=== PATIENT | female | born 1985 | race Caucasian/White ===

== ENCOUNTER 2024-04-15 17:03 | Emergency (ER) | payer MEDICAID ==
[~2024-04-15] VITALS: Ht 167.6 cm; Wt 73.0 kg
[2024-04-15 17:12] VITALS: BP 120/84; PULSE 110; RESP 16; TEMP 97.7; O2SAT 99
== END 2024-04-15 22:30 | disposition left against medical advice (07) ==
LOC: ER 17:03
DX: R25.2 Cramp and spasm (principal); I49.9 Cardiac arrhythmia, unspecified; Z53.21 Procedure and treatment not carried out due to patient leaving prior to being seen by health care provider
CPT/HCPCS: 93005